=== PATIENT | male | born 1975 | race Two or more races ===

== ENCOUNTER 2018-01-18 21:04 | Emergency (ER) | payer OTHER ==
[~2018-01-18] VITALS: Ht 180.3 cm; Wt 104.3 kg
[2018-01-18 21:16] VITALS: BP 97/65
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
--- NOTE | 2018-01-18 22:30 | NUR ---
PER DR. IRON STARK TO BE CANCELED.
== END 2018-01-18 22:43 | disposition home or self-care (01) ==
LOC: EDBD 21:08 → ER 21:08
DX: N49.2 Inflammatory disorders of scrotum (principal)
CPT/HCPCS: A4606; Z7610

== ENCOUNTER 2021-08-02 17:59 | Emergency (ER) | payer OTHER ==
[~2021-08-02] VITALS: Ht 177.8 cm; Wt 102.1 kg
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
--- NOTE | 2021-08-02 18:37 | NUR ---
MONICAP PA AT BEDSIDE FOR EVAL.
--- NOTE | 2021-08-02 19:06 | NUR ---
RAT [facility]ARMER AT [facility] FOR BLOOD DRAW.
[2021-08-02 19:15] LABS: BASOPHILS % (AUTO) 0.5 % (0.0-2.0); EOSINOPHILS % (AUTO) 1.1 % (0.0-6.0); HEMATOCRIT 53 % (39-51); HEMOGLOBIN 17.4 g/dL (13.5-17.5); LYMPHOCYTES # (AUTO) 2.1 K/uL (0.8-4.8); LYMPHOCYTES % (AUTO) 30.2 % (20.0-44.0); MEAN CORPUSCULAR HGB CONC 33 g/dl (31.0-36.0); MEAN CORPUSCULAR VOLUME 92 fL (80-96); MONOCYTES # (AUTO) 0.4 K/uL (0.1-1.30); MONOCYTES % (AUTO) 5.9 % (2.0-12.0); NEUTROPHILS # (AUTO) 4.4 K/uL (1.8-8.9); NEUTROPHILS % (AUTO) 62.3 % (43.0-81.0); PLATELET COUNT (AUTO) 292 K/uL (150-450); RED BLOOD CELL COUNT(AUTO) 5.76 MIL/uL (4.5-6.0); WHITE BLOOD COUNT (AUTO) 7.1 K/uL (4.3-11.0)
[2021-08-02 19:34] LABS: CARBON DIOXIDE 24 mmol/L (21-32); CHLORIDE 103 mmol/L (98-107); CREATININE 1.1 mg/dL (0.6-1.3); POTASSIUM 4.3 mmol/L (3.5-5.1); SODIUM SERUM 138 mmol/L (136-145); UREA NITROGEN, BLOOD 13 mg/dL (7-18)
[2021-08-02 19:40] LABS: GLUCOSE 403 mg/dL (74-106)
--- NOTE | 2021-08-02 19:40 | NUR ---
BLOOD GLUCOSE 403
[2021-08-02] MEDS ORDERED: INSULIN REGULAR, HUMAN 100 UNIT/ML 10 ML VIAL ONE (19:50)
[2021-08-02 19:58] LABS: BILIRUBIN,DIRECT 0.1 mg/dL (0.0-0.2); BILIRUBIN,TOTAL 0.3 mg/dL (0.2-1.0); TOTAL PROTEIN, SERUM 8.1 g/dL (6.4-8.2)
[2021-08-02] MEDS: INSULIN REGULAR, HUMAN 100 UNIT/ML 10 ML VIAL SQ ONE (19:59)
[2021-08-02] MEDS: IV NS 0.9% 1,000 ML BAG IV ONE (19:59)
[2021-08-02 20:36] LABS: BILIRUBIN,URINE Negative (NEGATIVE); COLOR,URINE YELLOW (YELLOW); LEUKOCYTE ESTERASE ,URINE Negative (NEGATIVE); NITRITE, URINE Negative (NEGATIVE); PH,URINE 5.5 (5.0-8.0); PROTEIN,URINE Negative (NEGATIVE); UGLUCOSE >=1000 mg/dL (NEGATIVE); UROBILINOGEN,URINE 0.2 EU/dL (0.2)
[2021-08-02 20:43] LABS: BACTERIA,URINE Rare /HPF (None Seen); RBC,URINE NONE SEEN /HPF (0-2); SQUAMOUS EPITHELIAL CELL,UR Few /HPF (None Seen); WBC,URINE NONE SEEN /HPF (0-3)
[2021-08-02] MEDS ORDERED: ONDANSETRON HCL/PF 4 MG/2 ML VIAL ONE (21:03)
[2021-08-02] MEDS ORDERED: KETOROLAC TROMETHAMINE INJ 30 MG/ML VIAL ONE (21:03)
[2021-08-02] MEDS: ONDANSETRON HCL/PF 4 MG/2 ML VIAL IV ONE (21:09)
[2021-08-02] MEDS: KETOROLAC TROMETHAMINE INJ 30 MG/ML VIAL IV ONE (21:09)
--- NOTE | 2021-08-02 21:14 | NUR ---
Patient discharged to law enforc[facility] in stable condition. Written and verbal after care instructions given. Patient verbalizes understanding of instruction.
[2021-08-02 21:15] VITALS: BP 137/98
== END 2021-08-02 21:16 ==
LOC: ER 18:07
DX: R10.84 Generalized abdominal pain (principal); R11.2 Nausea with vomiting, unspecified; E11.65 Type 2 diabetes mellitus with hyperglycemia; I10 Essential (primary) hypertension; F10.10 Alcohol abuse, uncomplicated; F17.200 Nicotine dependence, unspecified, uncomplicated; Y90.9 Presence of alcohol in blood, level not specified; Z02.89 Encounter for other administrative examinations
CPT/HCPCS: 36415; 71045; 80048; 80076; 81001; 82962; 83690; 84484; 85025; 85378; 93005; 96361; 96372; 96374; 96375; 99285; J1815; J1885; J2405; J7030

== ENCOUNTER 2022-09-24 19:24 | Emergency (ER) | payer MEDICAID, OTHER ==
[~2022-09-24] VITALS: Ht 167.6 cm; Wt 102.1 kg
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
--- NOTE | 2022-09-24 20:19 | NUR ---
PT REFUSED BLOOD DRAW; DR. ANDERSON AWARE
[2022-09-24 22:43] LABS: BASOPHILS % (AUTO) 0.5 % (0.0-2.0); EOSINOPHILS % (AUTO) 2.6 % (0.0-6.0); HEMATOCRIT 45 % (39-51); HEMOGLOBIN 14.9 g/dL (13.5-17.5); LYMPHOCYTES # (AUTO) 2.3 K/uL (0.8-4.8); LYMPHOCYTES % (AUTO) 25.4 % (20.0-44.0); MEAN CORPUSCULAR HGB CONC 33 g/dl (31.0-36.0); MEAN CORPUSCULAR VOLUME 89 fL (80-96); MONOCYTES # (AUTO) 0.4 K/uL (0.1-1.30); NEUTROPHILS # (AUTO) 5.9 K/uL (1.8-8.9); NEUTROPHILS % (AUTO) 66.5 % (43.0-81.0); PLATELET COUNT (AUTO) 349 K/uL (150-450); RED BLOOD CELL COUNT(AUTO) 5.07 MIL/uL (4.5-6.0); WHITE BLOOD COUNT (AUTO) 8.9 K/uL (4.3-11.0)
[2022-09-24 22:56] LABS: CALCIUM, SERUM 8.6 mg/dL (8.5-10.1); CARBON DIOXIDE 25 mmol/L (21-32); CHLORIDE 107 mmol/L (98-107); CREATININE 1.1 mg/dL (0.6-1.3); GLUCOSE 177 mg/dL (74-106); POTASSIUM 3.9 mmol/L (3.5-5.1); SODIUM SERUM 141 mmol/L (136-145); UREA NITROGEN, BLOOD 24 mg/dL (7-18)
[2022-09-25 01:50] VITALS: BP 148/75
--- NOTE | 2022-09-25 01:50 | NUR ---
Patient discharged to [employer] custody in stable condition. Written and verbal after care instructions given. Patient verbalizes understanding of instruction.
== END 2022-09-25 01:50 ==
LOC: ER 19:25
DX: R07.89 Other chest pain (principal); I10 Essential (primary) hypertension; E11.9 Type 2 diabetes mellitus without complications; Z60.2 Problems related to living alone; F17.200 Nicotine dependence, unspecified, uncomplicated; I25.10 Atherosclerotic heart disease of native coronary artery without angina pectoris
CPT/HCPCS: 36415; 71045-TC; 80048-TC; 83880; 84484-TC; 85025-TC

== ENCOUNTER 2024-08-29 03:04 | Emergency (ER) | payer MEDICAID, OTHER ==
[~2024-08-29] VITALS: Ht 172.7 cm; Wt 90.7 kg
[2024-08-29] MEDS: IV NS 0.9% 1,000 ML BAG IV ONE (03:38)
[2024-08-29 03:48] LABS: BASOPHILS % (AUTO) 0.6 % (0.0-2.0); EOSINOPHILS # (AUTO) 0.1 K/uL (0.0-0.7); EOSINOPHILS % (AUTO) 1.7 % (0.0-6.0); HEMATOCRIT 48 % (39-51); HEMOGLOBIN 15.8 g/dL (13.5-17.5); LYMPHOCYTES # (AUTO) 2.2 K/uL (0.8-4.8); LYMPHOCYTES % (AUTO) 33.6 % (20.0-44.0); MEAN CORPUSCULAR HEMOGLOBIN 29 PG (26.0-33.0); MEAN CORPUSCULAR HGB CONC 33 g/dl (31.0-36.0); MEAN CORPUSCULAR VOLUME 88 fL (80-96); MONOCYTES # (AUTO) 0.3 K/uL (0.1-1.30); MONOCYTES % (AUTO) 5.1 % (2.0-12.0); PLATELET COUNT (AUTO) 309 K/uL (150-450); RED BLOOD CELL COUNT(AUTO) 5.41 MIL/uL (4.5-6.0); RED CELL DISTRIBUTION WIDTH 13.3 % (11.5-15.0); WHITE BLOOD COUNT (AUTO) 6.7 K/uL (4.3-11.0)
[2024-08-29 03:50] LABS: CALCIUM, SERUM 8.7 mg/dL (8.5-10.1); CARBON DIOXIDE 28 mmol/L (21-32); CHLORIDE 102 mmol/L (98-107); CREATININE 1.1 mg/dL (0.6-1.3); POTASSIUM 4.1 mmol/L (3.5-5.1); SODIUM SERUM 139 mmol/L (136-145); UREA NITROGEN, BLOOD 16 mg/dL (7-18)
[2024-08-29 04:04] LABS: ALANINE AMINOTRANSFERASE 26 U/L (12-78); ALBUMIN 3.4 g/dL (3.4-5.0); ALKALINE PHOSPHATASE 139 U/L (46-116); ASPARTATE AMINOTRANSFERASE 8 U/L (15-37); BILIRUBIN,DIRECT 0.1 mg/dL (0.0-0.2); BILIRUBIN,TOTAL 0.5 mg/dL (0.2-1.0); NT-PRO BNP 48 pg/mL (0-125); TOTAL PROTEIN, SERUM 7.6 g/dL (6.4-8.2)
[2024-08-29 04:17] LABS: GLUCOSE 479 mg/dL (74-106)
[2024-08-29] MEDS ORDERED: INSULIN REGULAR, HUMAN 100 UNIT/ML 10 ML VIAL ONE (04:45)
[2024-08-29] MEDS: INSULIN REGULAR, HUMAN 100 UNIT/ML 10 ML VIAL SQ ONE (04:52)
[2024-08-29 08:04] VITALS: BP 140/94; O2SAT 98
== END 2024-08-29 07:35 ==
LOC: ER 03:11
DX: I11.9 Hypertensive heart disease without heart failure (principal); E11.65 Type 2 diabetes mellitus with hyperglycemia; F17.200 Nicotine dependence, unspecified, uncomplicated; G93.89 Other specified disorders of brain
CPT/HCPCS: 99285; 96372; 96360; 93005; 71045; 70450; 85025; 80048; 80076; 36415; 84484; 83880; 82962 ×2; 80320; J1815; J7030; G0480

== ENCOUNTER 2024-12-25 12:25 | Emergency (ER) | payer OTHER ==
[~2024-12-25] VITALS: Ht 175.3 cm; Wt 99.8 kg
[2024-12-25 13:10] LABS: BASOPHILS % (AUTO) 0.6 % (0.0-2.0); EOSINOPHILS # (AUTO) 0.1 K/uL (0.0-0.7); EOSINOPHILS % (AUTO) 1.1 % (0.0-6.0); HEMATOCRIT 55 % (39-51); HEMOGLOBIN 18.4 g/dL (13.5-17.5); LYMPHOCYTES # (AUTO) 2.4 K/uL (0.8-4.8); LYMPHOCYTES % (AUTO) 31.7 % (20.0-44.0); MEAN CORPUSCULAR HEMOGLOBIN 30 PG (26.0-33.0); MEAN CORPUSCULAR HGB CONC 34 g/dl (31.0-36.0); MEAN CORPUSCULAR VOLUME 90 fL (80-96); MONOCYTES # (AUTO) 0.4 K/uL (0.1-1.30); MONOCYTES % (AUTO) 4.7 % (2.0-12.0); NEUTROPHILS # (AUTO) 4.6 K/uL (1.8-8.9); NEUTROPHILS % (AUTO) 61.9 % (43.0-81.0); PLATELET COUNT (AUTO) 351 K/uL (150-450); RED BLOOD CELL COUNT(AUTO) 6.07 MIL/uL (4.5-6.0); RED CELL DISTRIBUTION WIDTH 13.4 % (11.5-15.0); WHITE BLOOD COUNT (AUTO) 7.4 K/uL (4.3-11.0)
[2024-12-25 13:47] LABS: CALCIUM, SERUM 9.9 mg/dL (8.5-10.1); CARBON DIOXIDE 29 mmol/L (21-32); CHLORIDE 99 mmol/L (98-107); CREATININE 1.4 mg/dL (0.6-1.3); NT-PRO BNP 36 pg/mL (0-125); POTASSIUM 3.8 mmol/L (3.5-5.1); SODIUM SERUM 139 mmol/L (136-145); UREA NITROGEN, BLOOD 13 mg/dL (7-18)
[2024-12-25 13:49] LABS: GLUCOSE 523 mg/dL (74-106)
[2024-12-25] MEDS ORDERED: KETOROLAC TROMETHAMINE 15 MG/ML VIAL ONE (14:30)
[2024-12-25] MEDS ORDERED: ONDANSETRON HCL/PF 4 MG/2 ML VIAL ONE (14:30)
[2024-12-25 14:31] LABS: LYMPHOCYTES % (MANUAL) 34 % (16-48); MONOCYTES % (MANUAL) 3 % (0-11.0); NEUTROPHILS % (MANUAL) 63 (42-76)
[2024-12-25 14:32] LABS: ANISOCYTOSIS 1+; PLATELET ESTIMATE ADEQUATE
[2024-12-25] MEDS: IV NS 0.9% 1,000 ML BAG IV ONE (14:38)
[2024-12-25] MEDS: KETOROLAC TROMETHAMINE 15 MG/ML VIAL IV ONE (14:39)
[2024-12-25] MEDS: ONDANSETRON HCL/PF 4 MG/2 ML VIAL IV ONE (14:39)
[2024-12-25] MEDS ORDERED: ASPIRIN 81 MG TAB.CHEW ONE (16:05)
[2024-12-25] MEDS: ASPIRIN 81 MG TAB.CHEW PO ONE (16:08)
[2024-12-25] MEDS ORDERED: ACETAMINOPHEN 325 MG TABLET PO PRN (16:30)
[2024-12-25] MEDS ORDERED: ONDANSETRON HCL/PF 4 MG/2 ML VIAL IVP PRN (16:30)
[2024-12-25] MEDS ORDERED: INSULIN REGULAR, HUMAN 100 UNIT/ML 10 ML VIAL SQ ONE (16:30)
[2024-12-25] MEDS ORDERED: MORPHINE SULFATE INJ 2 MG/ML DISP.SYRIN IV PRN (16:30)
[2024-12-25 16:46] VITALS: BP 132/95; TEMP 98.6; O2SAT 100
== END 2024-12-25 16:49 | disposition left against medical advice (07) ==
LOC: ER 12:30
DX: R07.89 Other chest pain (principal); R79.89 Other specified abnormal findings of blood chemistry; E11.65 Type 2 diabetes mellitus with hyperglycemia; N17.9 Acute kidney failure, unspecified; F17.200 Nicotine dependence, unspecified, uncomplicated; I10 Essential (primary) hypertension; Z95.1 Presence of aortocoronary bypass graft; Z86.79 Personal history of other diseases of the circulatory system; Z60.2 Problems related to living alone
CPT/HCPCS: 99285; 96374; 96361; 96375; 93005; 71045; 85025; 80048; 85007; 36415; 84484 ×2; 83880; 80320; J2405; J7030; J1885; G0480

== ENCOUNTER 2025-03-18 09:14 | Emergency (ER) | payer MEDICAID, OTHER ==
[~2025-03-18] VITALS: Ht 170.2 cm; Wt 102.1 kg
[2025-03-18] MEDS ORDERED: SULF1TAB48 PO (09:33)
[2025-03-18] MEDS ORDERED: CEPH-570 PO (09:33)
[2025-03-18] MEDS ORDERED: SULFAMETH/TRIMETH 800/160 MG 1 UDTAB TABLET ONE (09:38)
[2025-03-18] MEDS ORDERED: CEPHALEXIN MONOHYDRATE 500 MG CAPSULE PO ONE (09:38)
[2025-03-18] MEDS: SULFAMETH/TRIMETH 800/160 MG 1 UDTAB TABLET PO ONE (09:41)
[2025-03-18] MEDS: CEPHALEXIN MONOHYDRATE 500 MG CAPSULE PO ONE (09:41)
[2025-03-18] MEDS ORDERED: KETOROLAC TROMETHAMINE 15 MG/ML VIAL ONE (09:42)
[2025-03-18] MEDS: KETOROLAC TROMETHAMINE 15 MG/ML VIAL IM ONE (09:48)
[2025-03-18 11:48] VITALS: BP 139/79; TEMP 97.5; O2SAT 98
== END 2025-03-18 11:48 | disposition home or self-care (01) ==
LOC: ER 09:23
DX: L03.115 Cellulitis of right lower limb (principal); I10 Essential (primary) hypertension; F17.200 Nicotine dependence, unspecified, uncomplicated; E11.9 Type 2 diabetes mellitus without complications; Z79.4 Long term (current) use of insulin; Z60.2 Problems related to living alone
CPT/HCPCS: 99285; 96372; 82962; J1885

== ENCOUNTER 2025-05-15 13:13 | Inpatient (IN) | payer MEDICAID ==
[~2025-05-15] VITALS: Ht 170.2 cm; Wt 115.7 kg
[~2025-05-15 13:13] MED LIST: CEPH-570 PO; SULF1TAB48 PO
[2025-05-15] MEDS: PIPERACILLIN /TAZOBACTAM 3.375 G in IV D5W 50 ML IV ONE (13:47)
[2025-05-15] MEDS: IV NS 0.9% 1,000 ML BAG IV ONE (13:47)
[2025-05-15] MEDS: KETOROLAC TROMETHAMINE 15 MG/ML VIAL IV ONE (13:47)
[2025-05-15 13:51] LABS: PLATELET COUNT (AUTO) 333 K/uL (150-450); RED BLOOD CELL COUNT(AUTO) 5.38 MIL/uL (4.5-6.0); RED CELL DISTRIBUTION WIDTH 12.9 % (11.5-15.0); WHITE BLOOD COUNT (AUTO) 9.2 K/uL (4.3-11.0)
[2025-05-15 14:03] LABS: CALCIUM, SERUM 8.9 mg/dL (8.5-10.1); CREATININE 0.9 mg/dL (0.6-1.3); SODIUM SERUM 132 mmol/L (136-145); UREA NITROGEN, BLOOD 13 mg/dL (7-18)
[2025-05-15] MEDS ORDERED: METO-358 PO (14:06)
[2025-05-15] MEDS ORDERED: ATOR80TA PO (14:06)
[2025-05-15] MEDS ORDERED: NITR0.4T48 SL (14:06)
[2025-05-15] MEDS ORDERED: EMPA10TA PO (14:06)
[2025-05-15] MEDS ORDERED: METF-440 PO (14:06)
[2025-05-15 14:09] LABS: ASPARTATE AMINOTRANSFERASE 14 U/L (15-37); TOTAL PROTEIN, SERUM 7.7 g/dL (6.4-8.2)
[2025-05-15 14:11] LABS: LACTIC ACID 1.6 mmol/L (0.4-2.0)
[2025-05-15] MEDS: VANCOMYCIN 1 GM in IV D5W 250 ML IV ONE (14:26)
[2025-05-15 16:00] VITALS: BP 134/84; TEMP 98.3; O2SAT 97
[2025-05-15] MEDS ORDERED: MAGNESIUM HYDROXIDE 30 ML UDC PO PRN (17:00)
[2025-05-15] MEDS ORDERED: DOSING PER PHARMACY-VANCOMYCIN IV XX PRN (17:00)
[2025-05-15] MEDS ORDERED: ONDANSETRON HCL/PF 4 MG/2 ML VIAL IVP PRN (17:00)
[2025-05-15] MEDS ORDERED: DOSING PER PHARMACY-ZOSYN IV 1 EA EA XX PRN (17:00)
[2025-05-15] MEDS ORDERED: DEXTROSE 50%-WATER 50 ML DISP.SYRIN IV PRN (17:00)
[2025-05-15] MEDS ORDERED: MAG HYDROX/AL HYDROX/SIMETH 30 ML UDC PO PRN (17:00)
[2025-05-15] MEDS ORDERED: ACETAMINOPHEN 325 MG TABLET PO PRN (17:00)
[2025-05-15] MEDS: ENOXAPARIN SODIUM 40 MG/0.4 ML DISP.SYRIN SQ SCH (17:07)
[2025-05-15] MEDS: IV NS 0.9% 1,000 ML IV PRN (17:07)
[2025-05-15] MEDS: BLOOD SUGAR DIAGNOSTIC 1 EACH STRIP IN SCH (17:28)
[2025-05-15] MEDS: INSULIN REGULAR, HUMAN 100 UNIT/ML 3 ML VIAL SQ PRN (17:29)
[2025-05-15] MEDS: VANCOMYCIN 1 GM in IV D5W 250ml IV ONE (17:30)
[2025-05-15 20:00] VITALS: BP 102/75; TEMP 97.5; O2SAT 97
[2025-05-15] MEDS: PIPERACILLIN /TAZOBACTAM 3.375 G in IV D5W 100 ML IV SCH (21:04)
[2025-05-16] MEDS: VANCOMYCIN HCL 1.25 GM in IV D5W 250 ML IV SCH ×2 (05:16→18:09)
[2025-05-16 07:30] VITALS: BP 101/66; TEMP 97.7; O2SAT 95
[2025-05-16 07:32] LABS: PLATELET COUNT (AUTO) 312 K/uL (150-450); RED BLOOD CELL COUNT(AUTO) 5.34 MIL/uL (4.5-6.0); RED CELL DISTRIBUTION WIDTH 13.2 % (11.5-15.0); WHITE BLOOD COUNT (AUTO) 7.4 K/uL (4.3-11.0)
[2025-05-16 08:01] LABS: CALCIUM, SERUM 8.3 mg/dL (8.5-10.1); CREATININE 0.9 mg/dL (0.6-1.3); PHOSPHORUS 3.3 mg/dL (2.5-4.9); SODIUM SERUM 141.0 mmol/L (136-145); UREA NITROGEN, BLOOD 12.0 mg/dL (7-18)
[2025-05-16] MEDS ORDERED: IV NS 0.9% 500 ML IV STA (12:06)
[2025-05-16 16:00] VITALS: BP 128/85; TEMP 97.9; O2SAT 97
[2025-05-16] MEDS: INSULIN GLARGINE, 100 UNIT/ML CARTRIDGE SQ SCH (21:57)
[2025-05-16] MEDS: *INSULIN REGULAR(HUMULIN R)HUM 100 UNIT/ML VIAL SQ PRN (22:00)
[2025-05-17] VITALS: BP 126/96; O2SAT 97
[2025-05-17 07:08] LABS: CALCIUM, SERUM 8.8 mg/dL (8.5-10.1); CREATININE 0.9 mg/dL (0.6-1.3); SODIUM SERUM 141.0 mmol/L (136-145); UREA NITROGEN, BLOOD 13.0 mg/dL (7-18)
[2025-05-17 07:30] VITALS: BP 125/83; TEMP 97.9; O2SAT 98
[2025-05-17] MEDS ORDERED: DOXY100T2 PO (11:02)
[2025-05-17] MEDS: TDAP [DIPH/PERTUSSIS/TET] 0.5 ML VIAL IM ONE (11:58)
[2025-05-18] MEDS ORDERED: NEOMY SULF/BACITRAC ZN/POLY 15 GM TUBE TP SCH (09:00)
== END 2025-05-17 14:38 | disposition home or self-care (01) | DRG 197 ==
LOC: ER 13:13 → MED 14:20
PROVIDERS: ADMIT Nurse Practitioner Acute Care; ATTEND Nurse Practitioner Acute Care
PROC: 0H9GXZZ Drainage of Left Hand Skin, External Approach (ICD-10-PCS; principal; 2025-05-15)
DX: I80.8 Phlebitis and thrombophlebitis of other sites (principal); E11.65 Type 2 diabetes mellitus with hyperglycemia; I89.1 Lymphangitis; I10 Essential (primary) hypertension; L98.499 Non-pressure chronic ulcer of skin of other sites with unspecified severity; Z79.84 Long term (current) use of oral hypoglycemic drugs; S61.210A Laceration without foreign body of right index finger without damage to nail, initial encounter; S61.012A Laceration without foreign body of left thumb without damage to nail, initial encounter; S60.422A Blister (nonthermal) of right middle finger, initial encounter; X58.XXXA Exposure to other specified factors, initial encounter; Y93.9 Activity, unspecified; Y92.009 Unspecified place in unspecified non-institutional (private) residence as the place of occurrence of the external cause; Z91.199 Patient's noncompliance with other medical treatment and regimen due to unspecified reason
CPT/HCPCS: 36415; 80048-TC; 80076-TC; 80202-TC; 82962-TC; 83605-TC; 83690-TC; 83735-TC; 84100-TC; 85025-TC; 87040-TC; 90715; 93971-TC; A4223; A6403; A6407; G0378; J1650; J1815; J1885; J2543; J3373; J7030; J7060